=== PATIENT | female | born 1965 | race Caucasian/White ===

== ENCOUNTER 2022-12-31 15:35 | Emergency (ER) | payer OTHER ==
[2022-12-31 16:11] VITALS: BP 142/80; PULSE 65; RESP 18; TEMP 98; BMI 27.9
[2022-12-31] MEDS ORDERED: IBUPROFEN 600 MG TABLET (FP) PO ONE (16:20)
[2022-12-31] MEDS ORDERED: DIPHTH,PERTUSS(ACELL),TET 0.5 ML DISP.SYRIN IM ONE ×2 (16:22→16:23)
== END 2022-12-31 17:47 | disposition home or self-care (01) ==
LOC: FER 15:35
PROC: 0HQLXZZ Repair Left Lower Leg Skin, External Approach (ICD-10-PCS; principal; 2022-12-31)
PROC: 3E0234Z Introduction of Serum, Toxoid and Vaccine into Muscle, Percutaneous Approach (ICD-10-PCS; 2022-12-31)
DX: S91.012A Laceration without foreign body, left ankle, initial encounter (principal); S86.012A Strain of left Achilles tendon, initial encounter; W26.8XXA Contact with other sharp object(s), not elsewhere classified, initial encounter; Y93.02 Activity, running
CPT/HCPCS: 73610-TC-LT-FY; 90715; 99284-25

== ENCOUNTER 2023-01-06 05:12 | Day surgery (SDC) | payer OTHER ==
[2023-01-04 12:25] VITALS: BMI 27.8
[2023-01-06] MEDS ORDERED: BUPIVACAINE HCL/PF 0.5% (5MG/ML) 10 ML VIAL ONE (07:43)
[2023-01-06] MEDS ORDERED: DEXAMETHASONE SOD PHOSPHATE 10 MG/1 ML VIAL ONE (07:43)
[2023-01-06] MEDS ORDERED: MIDAZOLAM HCL 2 MG/2 ML SINGLE DOSE VIAL ONE ×2 (07:44→08:13)
[2023-01-06] MEDS ORDERED: PROPOFOL 20 ML ONE (07:47)
[2023-01-06] MEDS ORDERED: ceFAZolin SODIUM 1 GM VIAL IVPB ONE (08:40)
[2023-01-06] MEDS ORDERED: ceFAZolin SODIUM 1 GM VIAL ONE (08:49)
[2023-01-06] MEDS ORDERED: KETOROLAC TROMETHAMINE 30 MG/1 ML VIAL ONE (09:12)
[2023-01-06] MEDS ORDERED: ONDANSETRON 4 MG/2 ML VIAL ONE (09:13)
[2023-01-06 12:09] VITALS: RESP 18
[2023-01-06 13:35] VITALS: BP 110/58; PULSE 57; TEMP 97.5
== END 2023-01-06 15:40 | disposition home or self-care (01) ==
LOC: JASU-SURG 05:12
PROVIDERS: ATTEND Orthopaedic Surgery
PROC: 0LUP07Z Supplement Left Lower Leg Tendon with Autologous Tissue Substitute, Open Approach (ICD-10-PCS; principal; 2023-01-06 08:00)
DX: S86.012A Strain of left Achilles tendon, initial encounter (principal); X58.XXXA Exposure to other specified factors, initial encounter; Y93.9 Activity, unspecified; Y92.9 Unspecified place or not applicable; Y99.9 Unspecified external cause status
CPT/HCPCS: 27652; C1713; 94760; 97116-GP; J1100